=== PATIENT | male | born 1975 | race Caucasian/White ===

== ENCOUNTER 2016-08-28 05:52 | Observation (INO) ==
--- NOTE | 2016-08-28 06:05 | Emergency Department Note ---
Disposition Clinical Impression: Epigastric pain Disposition: Still a Patient Condition: Undetermined Referrals: Alex Brown PAC [Primary Care Provider] - Forms: ED Satisfaction Letter Time of Disposition: 06:58 Chest Pain HPI - General Chief Complaint: ED Chest Pain Stated Complaint: midsternal chest pain/epigastric pain Time Seen by Provider: 08/28/16 05:57 Source: patient Mode of arrival: ambulatory Limitations: no limitations Vital Signs Reviewed: Yes Nursing Notes Reviewed: Yes - History of Present Illness HPI Narrative: 40-year-old male with no previous medical history but he states he does not see a physician, arrives to the emergency department complaining of left-sided chest pain radiating to his left shoulder and epigastric region that began at 0200 and having bilateral hand tingling. The patient does have associated dyspnea. He denies any other complaints at this time. The patient's father had an OR at age 3939 years old. The patient denies any previous cardiac catheter or testing other than an EKG for previous chest pain episode years ago. Patient denies any other complaints including fever, chills, nausea, vomiting, weakness, unilateral leg swelling, recent surgeries, history of PE or DVT. The patient does state that he is experiencing epigastric pain. Pt complaint: chest pain Onset (ago): Just [employer] Duration: constant Onset: during rest Pain Location: left chest Severity: moderate Severity scale (1-10): 9 Quality: tightness Pain Radiation: LUE Improves with: nothing Worsens with: nothing Treatments prior to arrival chest pain: none - Related Data On Oral Contraceptives: No Allergies Allergy/AdvReac Type Severity Reaction Status Date / Time No Known Allergies Allergy Verified 08/28/16 05:55 Review of Systems: Review of Systems Constitutional: Denies fevers, chills HEENT: Denies headache Respiratory: Denies cough, sputum change, hemoptysis, admits to dyspnea Cardiac: Admits to chest pain, pressure, denies palpitations, dyspnea on exertion, pedal edema Gastrointestinal: Denies abdominal pain, changes in bowel habits, vomiting, nausea Genitourinary: Denies dysuria, hematuria, nocturia, change in frequency, urgency, incontinence Neurologic: Denies headaches, dizziness, syncope, focalized weakness, paraesthesias, weakness Musculoskeletal: Denies back pain, joint pain, myalgias All systems ED: reviewed and negative except as stated. Chest Pain PMH - Past Medical History Medical history: Reports: other Surgical history: Reports: other (Tonsillectomy) Psychiatric history: Reports: no psych history - Social History Smoking Status: Current every day smoker Alcohol use: Reports: none Drug use: Reports: IVDU, other Physical Exam Physical Exam: General: Patient alert, mildly diaphoretic upon arrival to the emergency department HEENT: Head normal inspection, atraumatic, PERRLA, oropharynx grossly intact and normal, trachea midline, no JVD Chest: Nontraumatic, nontender, normal chest rise CV: RRR with no murmurs, rubs, gallops Respiratory: Lungs clear to auscultation bilaterally, no rales, rhonchi, wheezes. Abdomen: Normal inspection, Normal bowel sounds 4 quadrants, RUQ pain, bellamy sign positive. No rebound, no guarding, no rigidity. : Patient deferred Extremities: Normal inspection, full range of motion, appropriate pulses, capillary refill under 2 seconds Neurological: Patient alert and oriented 3, cranial nerves II through XII grossly intact, GCS 15 Skin: Warm, intact, no rashes noted - General Limitations: no limitations General appearance: alert Course Vital Signs Temperature 98.2 F 08/28/16 05:55 Pulse Rate 63 08/28/16 05:55 Respiratory Rate 20 08/28/16 05:55 Blood Pressure 168/92 08/28/16 05:55 O2 Sat by Pulse Oximetry 100 08/28/16 05:55 Temperature 98.2 F 08/28/16 05:55 Pulse Rate 59 08/28/16 06:37 Respiratory Rate 18 08/28/16 06:37 Blood Pressure 121/83 08/28/16 06:37 O2 Sat by Pulse Oximetry 99 08/28/16 06:37 Oxygen Delivery Oxygen Delivery Room Air Chest Pain - MDM Narrative Medical decision making narrative: After utilizing a bedside ultrasound that it does appear as though the patient does have gallstones. The patient has sonographic Bellamy sign. We will obtain a right upper quadrant ultrasound. We are signing out the patient to the day team. They will resume care at this time. - Lab Data Lab results reviewed: Yes I reviewed the patient's lab results. Result diagrams: 08/28/16 06:00 08/28/16 06:00 Lab Results 08/28/16 08/28/16 08/28/16 Range/Units 06:00 06:00 06:00 WBC 11.8 H (4.3-11.1) K/mcL RBC 5.39 (4.19-5.50) M/mcL Hgb 15.7 (12.9-16.9) g/dL Hct 46.7 (37.5-50.1) % MCV 86.6 (83.0-100.0) fL MCH 29.1 (28.0-33.3) pg MCHC 33.6 (31.6-35.5) g/dL RDW 12.5 (11.5-14.5) % Plt Count 260 (140-400) K/mcL MPV 10.8 (9.4-12.4) fL Immature Gran % 0.4 (0-4) % Seg Neutrophils % 54.5 % Lymphocytes % 33.1 % Monocytes % 7.3 % Eosinophils % 4.1 % Basophils % 0.6 % Neutrophils # 6.4 (1.6-8.9) K/mcL Lymphocytes # 3.9 (0.6-4.6) K/mcL Monocytes # 0.9 (0.0-1.3) K/mcL Eosinophils # 0.5 (0.0-0.6) K/mcL Basophils # 0.1 (0.0-0.2) K/mcL Sodium 139 (136-145) mEq/L Potassium 4.6 H (3.5-4.5) mEq/L Chloride 106 (98-109) mEq/L Carbon Dioxide 22 (19-29) mEq/L BUN 10 (8-26) mg/dL Creatinine 0.84 (0.72-1.25) mg/dL Est GFR ( Amer) > 60 (> 60) Est GFR (Non-Af Amer) > 60 (> 60) BUN/Creatinine Ratio 12 (6-26) Glucose 122 H (70-99) mg/dL Calculated Osmolality 288 (280-300) Calcium 9.6 (8.6-10.8) mg/dL Troponin I 0.00 (0-0.03) ng/mL Lipase 26 (8-78) Units/L - EKG Data EKG attestation: Yes I reviewed and interpreted this EKG. EKG results narrative: Heart rate 58 bpm. FL interval 140 ms. QTc 45 ms. Normal axis. Sinus bradycardia. No ST elevation or ST depression noted. Nonspecific ST changes noted from EKG from 11/20/2005. EKG #2: Heart rate 56 bpm. FL interval 149 ms. QTc 417 ms. Normal axis. Sinus bradycardia. No ST elevation or ST depression noted. Similar to previous EKG Attestation Statement - Attestation Attestation: Dr. España note: Pt was seen in conjunction with resident Dr. Covarrubias, please see his charting for complete documentation. Assessment [id number] time with the patient and agree with the patient's treatment and disposition; Pain since 2 a.m , and Troponin/lipase negative @ this time; ultrasound of GBladder pending; signed out to Dr Phipps @ 7 a.m; ekg non acute, unchanged on repeat
[2016-08-28] MEDS ORDERED: Nitroglycerin 0.4 MG TAB.SUBL SL ONE (06:09)
[2016-08-28 06:11] LABS: Basophils # 0.1 K/mcL (0.0-0.2); Basophils % 0.6 %; Eosinophils # 0.5 K/mcL (0.0-0.6); Eosinophils % 4.1 %; Hematocrit 46.7 % (37.5-50.1); Hemoglobin 15.7 g/dL (12.9-16.9); Immature Granulocytes % 0.4 % (0-4); Lymphocytes # 3.9 K/mcL (0.6-4.6); Lymphocytes % 33.1 %; Mean Corpuscular HGB Conc 33.6 g/dL (31.6-35.5); Mean Corpuscular Hemoglobin 29.1 pg (28.0-33.3); Mean Corpuscular Volume 86.6 fL (83.0-100.0); Mean Platelet Volume 10.8 fL (9.4-12.4); Monocytes # 0.9 K/mcL (0.0-1.3); Monocytes % 7.3 %; Neutrophils # 6.4 K/mcL (1.6-8.9); Platelet Count 260 K/mcL (140-400); Red Blood Count 5.39 M/mcL (4.19-5.50); Red Cell Distribution Width 12.5 % (11.5-14.5); Segmented Neutrophils % 54.5 %
[2016-08-28] MEDS: Nitroglycerin 0.4 MG TAB.SUBL SL PRN ×2 (06:17→06:23)
[2016-08-28 06:24] LABS: BUN/Creatinine Ratio 12 (6-26); Blood Urea Nitrogen 10 mg/dL (8-26); Calcium 9.6 mg/dL (8.6-10.8); Carbon Dioxide 22 mEq/L (19-29); Chloride 106 mEq/L (98-109); Glucose 122 mg/dL (70-99); Osmolality,Calculated 288 (280-300); Potassium 4.6 mEq/L (3.5-4.5); Sodium 139 mEq/L (136-145); eGFR For African Americans > 60 (> 60); eGFR For Non-African Americans > 60 (> 60)
[2016-08-28] MEDS ORDERED: *HR* Morphine 2 MG/ML SYRINGE IVP ONE ×2 (06:28→08:18)
[2016-08-28] MEDS ORDERED: *HR* HYDROmorphone (PF) 1 MG/ML SYRINGE IVP ONE ×2 (06:43→07:10)
[2016-08-28] MEDS ORDERED: Nitroglycerin 25 MG/250 ML INFUS..BTL IVC SCH (06:45)
[2016-08-28 06:48] LABS: Lipase 26 Units/L (8-78)
[2016-08-28] MEDS ORDERED: Ondansetron 4 MG/2 ML VIAL IV ONE (06:48)
--- NOTE | 2016-08-28 07:09 | Emergency Department Note ---
Disposition Clinical Impression: Epigastric pain, RUQ pain, Left sided chest pain Disposition: Admitted As Inpatient Condition: Fair Time of Disposition: 10:57 Chest Pain HPI - General Chief Complaint: ED Chest Pain Stated Complaint: midsternal chest pain/epigastric pain Time Seen by Provider: 08/28/16 05:57 Source: patient Mode of arrival: ambulatory Limitations: no limitations Vital Signs Reviewed: Yes Nursing Notes Reviewed: Yes - History of Present Illness Pain Location: left chest Severity scale (1-10): 9 Quality: tightness Improves with: nothing Worsens with: nothing - Related Data On Oral Contraceptives: No Allergies Allergy/AdvReac Type Severity Reaction Status Date / Time No Known Allergies Allergy Verified 08/28/16 05:55 Chest Pain PMH - Past Medical History Medical history: Reports: other Surgical history: Reports: other (Tonsillectomy) Psychiatric history: Reports: no psych history - Social History Smoking Status: Current every day smoker Alcohol use: Reports: none Drug use: Reports: IVDU, other Physical Exam - General Limitations: no limitations General appearance: alert, other (sweating, appears uncomfortable) - Head Head exam: atraumatic, normocephalic, normal inspection - Eye Eye exam: Present: normal appearance, PERRL, EOMI - ENT ENT exam: normal exam, normal oropharynx, mucous membranes moist - Neck Neck exam: Present: normal inspection, full ROM, trachea midline - Chest Chest inspection: Present: normal inspection, symmetric chest wall rise - Respiratory Respiratory exam: Present: normal lung sounds bilaterally - Cardiovascular Cardiovascular exam: Present: regular rate, normal rhythm, normal heart sounds - Abdominal Exam Abdominal exam: Present: soft, tenderness (Tenderness in the right upper quadrant, epigastric region). Absent: guarding, rebound, rigidity - Extremities Exam Extremities exam: Present: normal inspection, full ROM. Absent: tenderness, pedal edema - Neurological Exam Neurological exam: Present: alert, oriented X3 - Psychiatric Psychiatric exam: Present: normal affect, normal mood - Skin Skin exam: Present: warm, dry, intact, normal color Course Course Narrative: Patient was a sign out from Dr. Covarrubias and Dr. España. Please see their notes for further details. Most of workup completed. Patient is a 40-year-old male with no previous past medical history who presented today with epigastric pain that radiated into his left chest and left shoulder that began around 2 AM. He also had some mild shortness of breath and sweating. Had an [place] at 40 years old. He has never had a previous heart attack, stenting, heart catheter or stress test. He denies any fevers, nausea, vomiting, diarrhea, bowel or bladder symptoms. Denies any leg swelling. After physical exam, patient began having right upper quadrant pain as well. A bedside ultrasound performed by the previous resident was positive for gallstones. They have ordered an official right upper quadrant ultrasound for further assessment. Regardless, patient is still having epigastric, left sided chest, right upper quadrant pain after morphine 4mg and 1mg dilaudid. Patient is sweating on exam, has RUW, epigastric pain with palpation; no reproducible chest pain on exam. Will likely admit for chest pain after workup complete. Mild elevation in WBC. BMP WNL. Trop negative. CXR negative. EKG NSR with no acute ST changes. Will give another 1mg of dilaudid and a GI cocktail. 10:54 patient has required multiple doses of morphine, Dilaudid, fentanyl. Ultrasound of gallbladder showed cholelithiasis with no signs of cholecystitis. CTA was obtained of the chest that was negative, CT of abdomen and pelvis obtained as well which was negative for any acute processes. Again, signs of cholelithiasis but no cholecystitis. I spoke with Dr. Montejo with surgery who agreed to be consult due to right upper quadrant pain. Recommended HIDA scan for further assessment. Hospitalist has been contacted and accepted the patient for admission due to intractable pain and right upper quadrant, epigastric region, left chest. Patient had no improvement with nitroglycerin. Dr Ruggiero did not want to start a nitroglycerin drip at this time. Vital Signs Temperature 98.2 F 08/28/16 05:55 Pulse Rate 63 08/28/16 05:55 Respiratory Rate 20 08/28/16 05:55 Blood Pressure 168/92 08/28/16 05:55 O2 Sat by Pulse Oximetry 100 08/28/16 05:55 Temperature 97.9 F 08/28/16 14:51 Pulse Rate 52 08/28/16 14:51 Respiratory Rate 18 08/28/16 14:51 Blood Pressure 130/82 08/28/16 17:17 O2 Sat by Pulse Oximetry 99 08/28/16 14:51 Oxygen Delivery Oxygen Delivery Room Air Chest Pain - MDM Narrative Medical decision making narrative: Patient was a sign out from Dr. Covarrubias and Dr. España. Please see their notes for further details. Most of workup completed. Patient is a 40-year-old male with no previous past medical history who presented today with epigastric pain that radiated into his left chest and left shoulder that began around 2 AM. He also had some mild shortness of breath and sweating. Had an [place] at 40 years old. He has never had a previous heart attack, stenting, heart catheter or stress test. He denies any fevers, nausea, vomiting, diarrhea, bowel or bladder symptoms. Denies any leg swelling. After physical exam, patient began having right upper quadrant pain as well. A bedside ultrasound performed by the previous resident was positive for gallstones. They have ordered an official right upper quadrant ultrasound for further assessment. Regardless, patient is still having epigastric, left sided chest, right upper quadrant pain after morphine 4mg and 1mg dilaudid. Patient is sweating on exam, has RUW, epigastric pain with palpation; no reproducible chest pain on exam. Will likely admit for chest pain after workup complete. Mild elevation in WBC. BMP WNL. Trop negative. CXR negative. EKG NSR with no acute ST changes. Will give another 1mg of dilaudid and a GI cocktail. 10:54 patient has required multiple doses of morphine, Dilaudid, fentanyl. Ultrasound of gallbladder showed cholelithiasis with no signs of cholecystitis. CTA was obtained of the chest that was negative, CT of abdomen and pelvis obtained as well which was negative for any acute processes. Again, signs of cholelithiasis but no cholecystitis. I spoke with Dr. Montejo with surgery who agreed to be consult due to right upper quadrant pain. Recommended HIDA scan for further assessment. Hospitalist has been contacted and accepted the patient for admission due to intractable pain and right upper quadrant, epigastric region, left chest. Patient had no improvement with nitroglycerin. Dr Ruggiero did not want to start a nitroglycerin drip at this time. - Lab Data Lab results reviewed: Yes I reviewed the patient's lab results. Result diagrams: 08/28/16 06:00 08/28/16 06:00 Lab Results 08/28/16 08/28/16 08/28/16 Range/Units 06:00 06:00 06:00 WBC 11.8 H (4.3-11.1) K/mcL RBC 5.39 (4.19-5.50) M/mcL Hgb 15.7 (12.9-16.9) g/dL Hct 46.7 (37.5-50.1) % MCV 86.6 (83.0-100.0) fL MCH 29.1 (28.0-33.3) pg MCHC 33.6 (31.6-35.5) g/dL RDW 12.5 (11.5-14.5) % Plt Count 260 (140-400) K/mcL MPV 10.8 (9.4-12.4) fL Immature Gran % 0.4 (0-4) % Seg Neutrophils % 54.5 % Lymphocytes % 33.1 % Monocytes % 7.3 % Eosinophils % 4.1 % Basophils % 0.6 % Neutrophils # 6.4 (1.6-8.9) K/mcL Lymphocytes # 3.9 (0.6-4.6) K/mcL Monocytes # 0.9 (0.0-1.3) K/mcL Eosinophils # 0.5 (0.0-0.6) K/mcL Basophils # 0.1 (0.0-0.2) K/mcL Sodium 139 (136-145) mEq/L Potassium 4.6 H (3.5-4.5) mEq/L Chloride 106 (98-109) mEq/L Carbon Dioxide 22 (19-29) mEq/L BUN 10 (8-26) mg/dL Creatinine 0.84 (0.72-1.25) mg/dL Est GFR ( Amer) > 60 (> 60) Est GFR (Non-Af Amer) > 60 (> 60) BUN/Creatinine Ratio 12 (6-26) Glucose 122 H (70-99) mg/dL Calculated Osmolality 288 (280-300) Calcium 9.6 (8.6-10.8) mg/dL Total Bilirubin 0.2 (0.2-1.2) mg/dL Direct Bilirubin 0.1 (0.0-0.5) mg/dL Indirect Bilirubin 0.1 (0.0-1.2) mg/dL AST 19 (5-34) Units/L ALT 20 (0-55) Units/L Alkaline Phosphatase 90 (38-126) Units/L Troponin I 0.00 (0-0.03) ng/mL Serum Total Protein 7.9 (6.0-8.3) g/dL Albumin 4.0 (3.5-5.0) g/dL Globulin 3.9 H (2.4-3.5) g/dL Albumin/Globulin Ratio 1.0 L (1.1-2.2) Lipase 26 (8-78) Units/L /11/08 Range/Units 12:03 WBC (4.3-11.1) K/mcL RBC (4.19-5.50) M/mcL Hgb (12.9-16.9) g/dL Hct (37.5-50.1) % MCV (83.0-100.0) fL MCH (28.0-33.3) pg MCHC (31.6-35.5) g/dL RDW (11.5-14.5) % Plt Count (140-400) K/mcL MPV (9.4-12.4) fL Immature Gran % (0-4) % Seg Neutrophils % % Lymphocytes % % Monocytes % % Eosinophils % % Basophils % % Neutrophils # (1.6-8.9) K/mcL Lymphocytes # (0.6-4.6) K/mcL Monocytes # (0.0-1.3) K/mcL Eosinophils # (0.0-0.6) K/mcL Basophils # (0.0-0.2) K/mcL Sodium (136-145) mEq/L Potassium (3.5-4.5) mEq/L Chloride (98-109) mEq/L Carbon Dioxide (19-29) mEq/L BUN (8-26) mg/dL Creatinine (0.72-1.25) mg/dL Est GFR ( Amer) (> 60) Est GFR (Non-Af Amer) (> 60) BUN/Creatinine Ratio (6-26) Glucose (70-99) mg/dL Calculated Osmolality (280-300) Calcium (8.6-10.8) mg/dL Total Bilirubin (0.2-1.2) mg/dL Direct Bilirubin (0.0-0.5) mg/dL Indirect Bilirubin (0.0-1.2) mg/dL AST (5-34) Units/L ALT (0-55) Units/L Alkaline Phosphatase (38-126) Units/L Troponin I 0.00 (0-0.03) ng/mL Serum Total Protein (6.0-8.3) g/dL Albumin (3.5-5.0) g/dL Globulin (2.4-3.5) g/dL Albumin/Globulin Ratio (1.1-2.2) Lipase (8-78) Units/L - Radiology Data Radiology results reviewed: Yes I reviewed the patient's radiology results. Chest X-Ray 08/28/16 06:03 IMPRESSION: Negative portable chest. D/ / Paul Downs MD / Paul Downs MD Interpreting Provider: Paul Downs MD Gallbladder Ultrasound 08/28/16 06:48 IMPRESSION: Cholelithiasis, with a positive sonographic Bellamy sign. There is also a thin rim of decreased echogenicity around the gallbladder, most likely representing focal fatty sparing. If any concern for cholecystitis, further evaluation could be obtained with a nuclear medicine scan to assess for cystic duct obstruction. No significant gallbladder wall thickening is seen however. No choledocholithiasis suspected with a normal size common bile duct. Hepatic steatosis. D/ / Andre Schumacher MD / nAdre Schumacher MD Interpreting Provider: Andre Schumacher MD Abdomen/Pelvis CT 08/28/16 08:13 IMPRESSION: Cholelithiasis without definite CT evidence of cholecystitis. Areas of mosaic attenuation related to air trapping within the lung bases which can be seen with small airways disease. Frondlike areas of soft tissue in the region of the base of the penis which may be related to sequela of HPV. D/ / 08/28/2016 10:22:40 Andre Schumacher MD / Bindu Christie Interpreting Provider: Andre Schumacher MD Chest CTA 08/28/16 08:13 IMPRESSION: Cholelithiasis without definite CT evidence of cholecystitis. Areas of mosaic attenuation related to air trapping within the lung bases which can be seen with small airways disease. Frondlike areas of soft tissue in the region of the base of the penis which may be related to sequela of HPV. D/ / 08/28/2016 10:22:40 Andre Schumacher MD / Bindu Christie Interpreting Provider: Andre Schumacher MD - EKG Data EKG attestation: Yes I reviewed and interpreted this EKG. EKG results narrative: 08/28/2016 06:33. Sinus bradycardia. Rate 56. NM interval 149. QRS 98. QTC 417. Normal axis. Q waves present in 2, 3, aVF that are present on old EKG in 2005. Mild ST elevation in lead 2 that was present on previous EKG in 11/20/2005 Heart Score - Score History: Moderately Suspicious EKG: Normal Age: Less than 45 Risk Factors: No risk factors known Troponin: Less than normal limit HEART Score Total: 1 S.B.APatsy - [place] Situation: Demographics, MOA Background: Presenting Complaint, Relevant PMH, Meds, & Allergies Assessment: Vital Signs, Course and respsone to treatment, Exam Concerns, Patient/Family Expectation, Pertinant Lab Results, Outstanding Labs Recommendation: Barrier(s) to disposition, Recommendation based on pending studies, treatments, or consults SBonita Report Given to: Dr. Clary Ontiveros Repor Time: 10:57 Attestation Statement - Attestation Attestation: I examined this patient and my medical decision-making was reviewed with the UPHOLSTERY HANDLER/PA/Advanced Practice Nurse/Resident Physician. I agree with the documented findings, disposition and treatment plan as described except to the extent set forth below. Patient signed out by lieutenant shift supervisor pending workup. Patient reevaluated. Patient being confrontational. States were doing nothing to help him. States renal care about him. Patient has had cardiac workup. Ultrasound result pending. He has had 2 doses of Dilaudid and a dose of morphine. Patient is on a gallbladder ultrasound that shows stones. CT chest abdomen pelvis to rule out dissection as it is still writhing in pain. No dissection. Patient is still rolling around on the bed. Will try another dose of fentanyl. He has been discussed with surgery and will be admitted to medicine. Dr Esapña note: Patient was seen in conjunction with resident Dr Covarrubias; please see his charting for complete documentation. I spent [id number] time with the patient and I agree with the patient's treatment and disposition. The patient has had chest pain and diaphoresis intermittently since 2 AM while at rest. No prodromal symptoms last night. Very dramatic and demanding in the ER. Denies prior presentations for the same symptoms. Father had a history of heart disease at young age. EKG shows no acute injury pattern and was repeated. Blood work unremarkable for acute coronary injury
[2016-08-28] MEDS ORDERED: GI Cocktail 40 ML EACH PO ONE (07:10)
[2016-08-28] MEDS ORDERED: *HR* FentaNYL (PF) 100 MCG/2 ML VIAL IV ONE ×2 (08:35→10:40)
[2016-08-28] MEDS ORDERED: Ketorolac 30 MG/ML VIAL IV ONE (10:11)
[2016-08-28] MEDS ORDERED: Naloxone 0.4 MG/ML INJ IVP PRN (11:09)
[2016-08-28] MEDS ORDERED: Ondansetron 4 MG/2 ML VIAL IVP PRN (11:09)
--- NOTE | 2016-08-28 11:40 | Internal Med History&Physical ---
<Antonia Rodriguez M - Last Filed: 08/28/16 11:36> Date of Encounter: 08/28/16 Time of Encounter: 11:36 Assessment and Plan (1) Left sided chest pain Current visit: Yes Status: Acute Patient reports left sided chest pain radiating to left shoulder accompanied by shortness of breath and sweats. EKG shows sinus bradycardia. Initial troponin negative at 0.0. Pain unrelieved by nitro. Patient has risk factors of smoking and family history of early MT. Continuous residential monitor serial troponins echocardiogram and stress test in the morning. (2) RUQ pain Current visit: Yes Status: Acute Patient has positive Bellamy's sign, tenderness to palpation in RUQ. US and CT show cholelithiasis without evidence of cholecystitis. surgery consulted and recommended HIDA scan HIDA scan ordered- patient must be pain med free for 6 hours prior to test, they will plan for first thing tomorrow morning. Hold pain medications after midnight. PRN NORCO and Dilaudid for pain control. Narcan ordered PRN for respiratory depression. (3) Smoker Current visit: Yes Status: Acute Patient reports he smokes 1PPD. Discussed smoking cessation. He is not ready to quit. Nicotine patch ordered. (4) History of narcotic addiction Current visit: Yes Status: Acute Patient's reported he was addicted to narcotics in the past and went through suboxone treatment. She reports he has been clean for 5 years. He does seem to have a high tolerance for pain medication and this should be taken into consideration. (5) DVT prophylaxis Current visit: Yes Status: Acute Encourage ambulation anti-embolic stockings Lovenox 40mg SQ daily Internal Medicine - H&P: HPI Chief complaint: chest pain, epigastric pain Admitted From: Emergency Dept Plans for Post Hospital Care: Home History of present illness: Mr. Torre is a 40 year old male who smokes and has a reported history of hiatal hernia who presented to the ED early this morning with complaints of chest pain and epigastric pain. He reports the pain started suddenly at 2am and was in his mid chest, radiating to his left shoulder and epigastric area. The pain was accompanied by sweats and shortness of breath. The pain progressively got worse and he decided to go to the ED. He denies any recent fevers, chills, nausea, vomiting or diarrhea. He has cardiac risk factors of smoking and strong family history of cardiac disease, with his father having an MT at age 39 and his paternal uncle dying at age 46 of an MT. He had exensive work up in the ED which included EKG showing sinus bradycardia with no ST elevations or depressions, CXR showed no acute issues. Troponin was negative at 0.0. Lipase was normal at 26. WBC was mildly elevated to 11.8. Patient had RUQ tenderness on exam and a RUQ US was ordered which showed cholelithiasis without cholecystitis. CTA was obtained and was negative for PE or aortic dissection. CT of the Abd/pelvis also confirmed cholelithiasis. Surgery was consulted and recommended a HIDA scan. Patient's pain was not well controlled and he required multiple doses of morphine, dilaudid and fentanyl to control his pain. He has a history of narcotic addiction (none in the last 5 years) which may explain the increased requirements. On exam, the patient was resting, and appeared comfortable. Lungs were clear bilaterally to auscultation and heart had regular, bradycardic rhythm. Patient had significant tenderness to RUQ on palpation. Past Med Surg Social Fam HX - Past Medical History Medical history: arthritis, other (hiatal hernia) Psychiatric history: no psych history - Past Surgical History Surgical History: other (Tonsillectomy) - Social History Smoking Status: Current every day smoker (26 pack year history) Smokeless Tobacco Status: No Alcohol use: none Drug use: IVDU (Clean for 5 years per ), other - Family History Father Living Status: Still Living Hx Family Cardiac Disorders: Yes Internal Medicine - H&P: Meds Allergies No Known Allergies Allergy (Verified 08/28/16 05:55) All Systems PM: A 10-system review of systems was performed and is negative for pertinent findings except as documented above in the HPI. - Constitutional Constitutional: night sweats, no chills, no fever(s) - EENT Eyes: no change in vision, no discharge, no pain, no photophobia Ears: no ear discharge, no ear pain, no tinnitus Nose, mouth and throat: no dysphagia, no nasal discharge, no neck pain, no sore throat - Cardiovascular Cardiovascular ROS IM: chest pain, diaphoresis, dyspnea, no lightheadedness, no palpitations, no syncope - Respiratory Respiratory: dyspnea, no cough, no wheezing, no excessive phlegm production - Gastrointestinal Gastrointestinal: abdominal pain, no diarrhea, no hematemesis, no hematochezia, no melena, no nausea, no vomiting - Musculoskeletal Musculoskeletal ROS IM: no numbness, no tingling - Integumentary Integumentary IM: no rash, no unusual bruising - Neurological Neurological ROS: no confusion, no convulsions, no focal weakness, no numbness, no tingling, no tremor(s) - Hematologic/Lymphatic Hematologic/Lymphatic: no easy bruising - Constitutional Vitals: Temp Pulse Resp BP Pulse Ox 98.2 F 54 16 176/88 99 08/28/16 05:55 08/28/16 10:17 08/28/16 10:17 08/28/16 10:17 08/28/16 10:17 General appearance: Present: mild distress, A&O X 3, pleasant - Head Head exam: Present: atraumatic, normocephalic - Eye Eye exam: Present: PERRL, conjuntiva pink, sclera anicteric Pupils: Present: PERRL - Neck Neck exam general surgery: Present: supple, trachea midline. Absent: lymphadenopathy - Respiratory Respiratory exam: Present: CTAB. Absent: accessory muscle use, rales, rhonchi, wheezes - Cardiovascular Cardiovascular exam: Present: bradycardia, +S1, +S2. Absent: diastolic murmur, gallop, rubs, systolic murmur - GI/Abdominal GI/Abdominal exam: Present: guarding, normal bowel sounds, soft, tenderness. Absent: distended - Expanded GI/Abdominal Exam GI/Abdominal exam expanded: Present: Bellamy's sign - Extremities Exam Extremities exam: Present: warm, radial pulses palpable and symetrical. Absent : calf tenderness, cyanotic, pedal edema - Neurological Exam Neurological exam: Present: CN II-XII intact, oriented X3, no focal deficits. Absent: facial droop, speech deficit - Skin Skin exam: Present: dry, intact Internal Med - H&P Results - Labs CBC & Chem 7: 08/28/16 06:00 08/28/16 06:00 Labs: All Lab Results (24 Hours) 08/28/16 08/28/16 08/28/16 Range/Units 06:00 06:00 06:00 WBC 11.8 H (4.3-11.1) K/mcL RBC 5.39 (4.19-5.50) M/mcL Hgb 15.7 (12.9-16.9) g/dL Hct 46.7 (37.5-50.1) % MCV 86.6 (83.0-100.0) fL MCH 29.1 (28.0-33.3) pg MCHC 33.6 (31.6-35.5) g/dL RDW 12.5 (11.5-14.5) % Plt Count 260 (140-400) K/mcL MPV 10.8 (9.4-12.4) fL Immature Gran % 0.4 (0-4) % Seg Neutrophils % 54.5 % Lymphocytes % 33.1 % Monocytes % 7.3 % Eosinophils % 4.1 % Basophils % 0.6 % Neutrophils # 6.4 (1.6-8.9) K/mcL Lymphocytes # 3.9 (0.6-4.6) K/mcL Monocytes # 0.9 (0.0-1.3) K/mcL Eosinophils # 0.5 (0.0-0.6) K/mcL Basophils # 0.1 (0.0-0.2) K/mcL Sodium 139 (136-145) mEq/L Potassium 4.6 H (3.5-4.5) mEq/L Chloride 106 (98-109) mEq/L Carbon Dioxide 22 (19-29) mEq/L BUN 10 (8-26) mg/dL Creatinine 0.84 (0.72-1.25) mg/dL Est GFR ( Amer) > 60 (> 60) Est GFR (Non-Af Amer) > 60 (> 60) BUN/Creatinine Ratio 12 (6-26) Glucose 122 H (70-99) mg/dL Calculated Osmolality 288 (280-300) Calcium 9.6 (8.6-10.8) mg/dL Troponin I 0.00 (0-0.03) ng/mL Lipase 26 (8-78) Units/L - Impressions ITS Impressions Chest X-Ray 08/28/16 06:03 IMPRESSION: Negative portable chest. D/ / Paul Downs MD / Paul Downs MD Interpreting Provider: Paul Downs MD Gallbladder Ultrasound 08/28/16 06:48 IMPRESSION: Cholelithiasis, with a positive sonographic Bellamy sign. There is also a thin rim of decreased echogenicity around the gallbladder, most likely representing focal fatty sparing. If any concern for cholecystitis, further evaluation could be obtained with a nuclear medicine scan to assess for cystic duct obstruction. No significant gallbladder wall thickening is seen however. No choledocholithiasis suspected with a normal size common bile duct. Hepatic steatosis. D/ / Andre Schumacher MD / Andre Schumacher MD Interpreting Provider: Andre Schumacher MD Abdomen/Pelvis CT 08/28/16 08:13 IMPRESSION: Cholelithiasis without definite CT evidence of cholecystitis. Areas of mosaic attenuation related to air trapping within the lung bases which can be seen with small airways disease. Frondlike areas of soft tissue in the region of the base of the penis which may be related to sequela of HPV. D/ : / 08/28/2016 10:22:40 Andre Schumacher MD / Bindu Christie Interpreting Provider: Andre Schumacher MD Chest CTA 08/28/16 08:13 IMPRESSION: Cholelithiasis without definite CT evidence of cholecystitis. Areas of mosaic attenuation related to air trapping within the lung bases which can be seen with small airways disease. Frondlike areas of soft tissue in the region of the base of the penis which may be related to sequela of HPV. D/ / 08/28/2016 10:22:40 Andre Schumacher MD / Bindu Christie Interpreting Provider: Andre Schumacher MD - Diagnostic Studies Chest x-ray Additional comments: Chest X-Ray 08/28/16 06:03 IMPRESSION: Negative portable chest. D/ / Paul Downs MD / Paul Downs MD Interpreting Provider: Paul Downs MD US - abdomen Additional comments: Gallbladder Ultrasound 08/28/16 06:48 IMPRESSION: Cholelithiasis, with a positive sonographic Bellamy sign. There is also a thin rim of decreased echogenicity around the gallbladder, most likely representing focal fatty sparing. If any concern for cholecystitis, further evaluation could be obtained with a nuclear medicine scan to assess for cystic duct obstruction. No significant gallbladder wall thickening is seen however. No choledocholithiasis suspected with a normal size common bile duct. Hepatic steatosis. D/ / Andre Schumacher MD / Andre Schumacher MD Interpreting Provider: Andre Schumacher MD CT scan - abdomen Additional comments: Abdomen/Pelvis CT 08/28/16 08:13 IMPRESSION: Cholelithiasis without definite CT evidence of cholecystitis. Areas of mosaic attenuation related to air trapping within the lung bases which can be seen with small airways disease. Frondlike areas of soft tissue in the region of the base of the penis which may be related to sequela of HPV. D/ / 08/28/2016 10:22:40 Andre Schumacher MD / Bindu Christie Interpreting Provider: Andre Schumacher MD CT scan - chest Additional comments: Chest CTA 08/28/16 08:13 IMPRESSION: Cholelithiasis without definite CT evidence of cholecystitis. Areas of mosaic attenuation related to air trapping within the lung bases which can be seen with small airways disease. Frondlike areas of soft tissue in the region of the base of the penis which may be related to sequela of HPV. D/ / 08/28/2016 10:22:40 Andre Schumacher MD / Bindu Christie Interpreting Provider: Andre Schumacher MD <David Means T - Last Filed: 08/28/16 14:18> Date of Encounter: 08/28/16 Internal Medicine - H&P: HPI History of present illness: Mr. Torre is a 40 year old male All Systems PM: A 10-system review of systems was performed and is negative for pertinent findings except as documented above in the HPI. - Constitutional Vitals: Temp Pulse Resp BP Pulse Ox 97.8 F 52 20 185/85 100 08/28/16 13:08 08/28/16 13:08 08/28/16 13:08 08/28/16 13:08 08/28/16 13:08 Internal Med - H&P Results - Labs CBC & Chem 7: 08/28/16 06:00 08/28/16 06:00 - Attending Attestation I have independently interviewed and examined this patient. I agree with the resident/nurse practitioner with extensions as stated below. The plan of care has been discussed with the patient. 41 Y/O M with PMH of Opiate dependence, now weaned off, also hx of HTN, presented to ER complaining of L sided chest pain radiating to his arms and then epigastric pain. He states his RUQ pain started after his abdomen was examined; he has required multiple high doses of pain medications in the ER. He is seen at bedside with his . VSS except elevated BP, he refused abdomen exam states too many people have touched chest is clear, no pedal edema Labs and Imaging reviewed: leukocytosis with shift, chem unremarkable, troponin negative X2 LFTs pending. CTA no acute event, Abd USS with hepatic steatosis and cholelithiasis, no current evidence of cholecystitis, murphys sign positive sonographically. EKG non-ischemic Assessment/Plan: Acute RUQ pain possibly biliary colic, rule out hepatitis , hx of hepatic steatosis, check lipid panel, IVF hydration , Obtain HIDA scan , consult GI. Chest pain not cardiac, possibly referred pain from RUQ pain, follows ECHO. Uncontrolled HTN worsened by pain, start on po Norvasc, Opiate tolerance, continue current pain meds. Rest of details as in [facility] documentation...
[2016-08-28] MEDS: *HR* HYDROmorphone (PF) 1 MG/ML SYRINGE IVP PRN ×2 (11:58→21:06)
[2016-08-28] MEDS ORDERED: Nicotine 21 MG PATCH.TD24 TD SCH (12:00)
--- NOTE | 2016-08-28 13:37 | Electrocardiograph Report ---
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
[2016-08-28] MEDS: *HR* HYDROcodone/Acet 5/325 mg TABLET PO PRN ×2 (13:41→19:58)
[2016-08-28] MEDS ORDERED: 0.9 % Sodium Chloride 1,000 ML ONE (13:51)
[2016-08-28] MEDS: 0.9 % Sodium Chloride 1,000 ML IVC SCH ×2 (14:01→23:06)
[2016-08-28] MEDS ORDERED: Ketorolac 60 MG/2 ML VIAL IM ONE (14:16)
[2016-08-28 14:27] LABS: Alanine Aminotransferase 20 Units/L (0-55); Alkaline Phosphatase 90 Units/L (38-126); Aspartate Amino Transferase 19 Units/L (5-34); Bilirubin,Direct 0.1 mg/dL (0.0-0.5); Bilirubin,Indirect 0.1 mg/dL (0.0-1.2); Bilirubin,Total 0.2 mg/dL (0.2-1.2); Globulin 3.9 g/dL (2.4-3.5); Total Protein 7.9 g/dL (6.0-8.3)
[2016-08-28] MEDS ORDERED: Ketorolac 30 MG/ML VIAL IM ONE (14:45)
[2016-08-28] MEDS: amLODIPine 5 MG TABLET PO SCH (14:49)
--- NOTE | 2016-08-28 16:02 | Electrocardiograph Report ---
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
[2016-08-28] MEDS ORDERED: Pantoprazole 40 MG VIAL IVP ONE (21:05)
--- NOTE | 2016-08-28 22:44 | Anesthesia Evaluation PreOp ---
<Jenni Herrera - Last Filed: 08/28/16 22:42> Date of Encounter: 08/28/16 - Past History Planned Operation: Lap cholecystectomy Cardiac History: Other (chest pain on admission unrelieved by nitro; trop 0.00 x 3; per IM note patient will received stress test and echo in the AM of 2016 ) Pulmonary History: Smoker Other Medical History: Other (hx narcotic addiction) Alcohol Use: none Drug use: IVDU, other Medications and Allergies Docusate [Colace] 100 mg PO BID #30 capsule 08/29/16 [Rx] OxyCODONE/APAP 10/325 [Percocet 10/325 MG] 1 each PO Q6HR PRN #30 tablet [Rx] Allergies No Known Allergies Allergy (Verified 08/28/16 05:55) - Meds/Allergy Pre-op Review Medications Reviewed: Yes Allergies Reviewed: Yes Beta Blockers on Current Med List: No Anesthesia Results - Labs 08/28/16 06:00 08/28/16 06:00 - Imaging EKG: report reviewed, image reviewed (SB) Additional studies: Patient is supposed to have stress test and TTE on 08-29-2016 per Internal Medicine H&P unless that plan has changed; patient does have family history of pre-mature CAD Anesthesia Exam Last Vital Signs Temp 97.6 F 08/28/16 18:00 Pulse 115 08/28/16 18:00 Resp 17 08/28/16 18:00 BP 149/79 08/28/16 18:00 Pulse Ox 96 08/28/16 18:00 Anesthesia Assess/Plan ASA Score: 2 Anesthetic Plan: General Monitoring Plan: Standard Monitors Recovery Plan: PACU <Juan Carlos Apple - Last Filed: 08/29/16 17:44> Date of Encounter: 08/29/16 Time of Encounter: 15:00 - Past History Cardiac History: Other Pulmonary History: Smoker 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: Denies Any Significant HX Other Medical History: Denies Any Significant HX Alcohol Use: none Drug use: IVDU, other - Meds/Allergy Pre-op Review Medications Reviewed: Yes Allergies Reviewed: Yes Beta Blockers on Current Med List: No Anesthesia Results - Labs 08/29/16 05:04 08/29/16 05:04 - Imaging EKG: report reviewed Anesthesia Exam O2 Sat O2 Sat by Pulse Oximetry 93 O2 Sat by Pulse Oximetry 94 O2 Sat by Pulse Oximetry 92 O2 Sat by Pulse Oximetry 98 O2 Sat by Pulse Oximetry 100 O2 Sat by Pulse Oximetry 96 O2 Sat by Pulse Oximetry 97 O2 Sat by Pulse Oximetry 98 O2 Sat by Pulse Oximetry 96 Vital Signs Temp Pulse Resp BP Pulse Ox 98.2 F 63 20 168/92 100 08/28/16 05:55 08/28/16 05:55 08/28/16 05:55 08/28/16 05:55 08/28/16 05:55 Height: 5'9 Weight: 190 lbs NPO (# of Hours): MN Pain Scale: 0 - HEENT Pupil (Motor): Pupils equal, EOMI Mallampati: II Teeth: Normal Oral Opening: Less than or equal to 3 - 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
[2016-08-29] MEDS: *HR* HYDROmorphone (PF) 1 MG/ML SYRINGE IVP PRN ×3 (02:42→14:03)
[2016-08-29] MEDS: *HR* HYDROcodone/Acet 5/325 mg TABLET PO PRN ×3 (04:57→17:48)
[2016-08-29 05:21] LABS: Hematocrit 43.7 % (37.5-50.1); Hemoglobin 14.4 g/dL (12.9-16.9); Immature Granulocytes % 0.5 % (0-4); Mean Corpuscular Hemoglobin 28.3 pg (28.0-33.3); Mean Platelet Volume 10.8 fL (9.4-12.4); Monocytes % 6.8 %; Platelet Count 226 K/mcL (140-400); Red Blood Count 5.08 M/mcL (4.19-5.50); Red Cell Distribution Width 12.6 % (11.5-14.5); Segmented Neutrophils % 67.4 %
[2016-08-29 05:22] LABS: Basophils % 0.3 %; Eosinophils # 0.3 K/mcL (0.0-0.6); Lymphocytes # 2.9 K/mcL (0.6-4.6); Monocytes # 0.9 K/mcL (0.0-1.3); Neutrophils # 8.5 K/mcL (1.6-8.9)
[2016-08-29 05:53] LABS: BUN/Creatinine Ratio 8 (6-26); Blood Urea Nitrogen 6 mg/dL (8-26); Carbon Dioxide 25 mEq/L (19-29); Chloride 106 mEq/L (98-109); Chol/HDL Ratio 5.2 (0-4.9); Cholesterol 150 mg/dL (< 200); Glucose 108 mg/dL (70-99); HDL Cholesterol 29 mg/dL (40-59); LDL Cholesterol,Calculated 107 mg/dL (0-99); Osmolality,Calculated 290 (280-300); Potassium 4.3 mEq/L (3.5-4.5); Sodium 141 mEq/L (136-145); Triglycerides 69 mg/dL (< 150); eGFR For African Americans > 60 (> 60); eGFR For Non-African Americans > 60 (> 60)
[2016-08-29] MEDS: amLODIPine 5 MG TABLET PO SCH (07:51)
[2016-08-29] MEDS: 0.9 % Sodium Chloride 1,000 ML IVC SCH (09:07)
--- NOTE | 2016-08-29 09:38 | ECHO - Doppler Report ---
Echocardiogram Name: Tera Torre Date of Study: 08/28/2016 Date: 1975 Ht: 69.0 in Medical Record#: [id number] Age: 40 Wt: 190.0 lb Gender: Male BSA: 2.02 Order #: [id number] Location: [facility] Room #: 3NE16 Reading Physician: Elina Martell DO Sampler And Test Preparer: Christina Berry RDCS Ordering Physician: Antonia Rodriguez CNP Primary Physician: HAIDER Ku Indications: Chest pain Impressions: LVEF 65-70%. Normal left ventricular size and systolic function. Normal right ventricular size and function. No significant valvular dysfunction. No pulmonary hypertension. Left Ventricular Wall Motion: Rest Echo Findings All wall segments showed normal motion. Findings: Study Quality * Technically adequate exam. ECG Findings * Normal sinus rhythm and sinus tachycardia. Left Ventricle * LVEF 65-70%. * Normal LV chamber size, wall thickness and function. * Indeterminate diastolic function. Fused mitral inflow. Right Ventricle * Normal right ventricular structure and function. Left Atrium * Normal left atrial size. Mitral Valve * Normal mitral valve structure. * No mitral stenosis. * No mitral regurgitation. Right Atrium * Normal right atrial size. Aortic Valve * Aortic valve not well visualized. * No aortic regurgitation. * No aortic stenosis. Tricuspid Valve * Tricuspid valve not well visualized. * Trace tricuspid regurgitation. Pulmonic Valve * Pulmonic valve is not well visualized. * No pulmonic stenosis. * No pulmonic regurgitation. Pulmonary Artery * Pulmonary artery not well visualized. Interatrial Septum * Interatrial septum not well evaluated. Pericardium * There is no pericardial effusion present. IVC * The IVC is not well evaluated. Aorta * Normally sized aortic root. History History of Smoking Years 26 Packs 1 Family History of CAD Measurements: BP: 184/ 92 2D Normal Values RVIDd: 3.20 cm <2.7 cm IVSd: .82 cm 0.6 - 1.0 cm LVIDd: 5.14 cm 3.7 - 5.6 cm LVPWd: .93 cm 0.6 - 1.1 cm LVIDs: 3.10 cm 1.5 - 3.6 cm AO: 2.70 cm < 4.0 cm LA: 3.60 cm 2.0 - 4.0cm %FS: 39.70 cm >25 % LA volume: 30 Mitral Valve Peak E:.69 m/sec Peak A:1.01 m/sec E/A Ratio:0.7 Peak E' Lat Hesham:18 cm/s Peak E' Med Hesham:9.79 cm/s E/E' Lat Ratio:3.9 E/E' Med Ratio:7.1 Updated by Elina Martell on 08/29/2016 9:32:54 AM electronically signed on 08/29/2016 9:33:26 AM with status of Final Wall Motion Van: 1=Normal, 2=Hypokinesis, 3=Akinesis, 4=Dyskinesis, 5=Aneurysmal, 6=Hyperkinetic, X=Not Visualized (Blank)=Missing
--- NOTE | 2016-08-29 12:10 | General Surgery Consult Note ---
Date of Encounter: 08/29/16 Time of Encounter: 11:00 Assessment and Plan (1) Symptomatic cholelithiasis Current Visit: Yes Status: Acute NPO for surgery IV fluids Supportive care/pain control Discussed the risks, benefits, alternatives and expected outcomes with the patient and he is in agreement to proceed with a laparoscopic cholecystectomy with cholangiogram with Dr. Montejo today- consent complete Pre-operative antibiotic (2) DVT prophylaxis Current Visit: Yes Status: Acute Will add EPCDs to bilateral lower extremities for DVT prophylaxis Ambulate hallways TID History of Present Illness Consult date: 08/29/16 Reason for consult: gallstones Requesting physician: Kevin Parks History of present illness: Mr. Torre is a 40 year old male who presented to the ED with complaints of sudden onset of epigastric abdominal pain. He states that the pain radiates into his RUQ and shoulders. Admits to chest pains as well. Admits to episode of diarhoresis with onset of the pain. Denies any associated nausea/vomiting. Denies any changes in bowel habits. He does admit to chronic constipation. Denies any melena or hematochezia. Denies any difficulty with urination. Admits to chronic heartburn which is uncontrolled. Denies any shortness of breath. He has had an US which shows evidence of cholelithiasis and a normal CBD. We have been asked to see and evaluate the patient for symptomatic cholelithiasis. Past Med Surg Social Fam HX - Past Medical History Source: patient Medical history: GERD, other (Hiatal hernia) Psychiatric history: no psych history - Past Surgical History Surgical History: other (Tonsillectomy) - Social History Smoking Status: Current every day smoker Packs per day: 1 Smokeless Tobacco Status: No Alcohol use: none Drug use: marijuana, IVDU (Denies use for the past 5 years), other Current living situation: Home - Independent Activity Level: Independent ambulation - Family History Father Living Status: Still Living Hx Family Cardiac Disorders: Yes Medications and Allergies No Known Home Drugs 08/28/16 [History] Allergies No Known Allergies Allergy (Verified 08/28/16 05:55) Review of Systems All systems PM: reviewed and no additional remarkable complaints except as stated (in the HPI) All systems PM: A 10-system review of systems was performed and is negative for pertinent findings except as documented above in the HPI. General Surgery Exam Initial Vital Signs Temp Pulse Resp BP Pulse Ox 98.2 F 63 20 168/92 100 08/28/16 05:55 08/28/16 05:55 08/28/16 05:55 08/28/16 05:55 08/28/16 05:55 - General physical appearance well developed, well nourished, no distress - Eyes PERRL, normal ocular movement - ENT normal mucosa, atraumatic, normocephalic - Neck trachea midline - Cardiovascular Cardiovascular exam: Present: RRR - Abdomen Abdomen general surgery: Present: bowel sounds present, soft, tender Abdominal Tenderness: Present: epigastic, RUQ - Integumentary Integumentary general surgery: Present: warm and dry - Neurologic Present: CN 2-12 grossly intact - Musculoskeletal Present: normal gait, normal posture - Psychiatric Psychiatric general surgery: Present: appropriate, oriented to person, oriented to place, oriented to time, speech is normal, memory intact Exam Initial Vital Signs Temp Pulse Resp BP Pulse Ox 98.2 F 63 20 168/92 100 08/28/16 05:55 08/28/16 05:55 08/28/16 05:55 08/28/16 05:55 08/28/16 05:55 Results - Labs 08/29/16 05:04 08/29/16 05:04 Abnormal lab results WBC 12.7 K/mcL (4.3-11.1) H 08/29/16 05:04 BUN 6 mg/dL (8-26) L 08/29/16 05:04 Glucose 108 mg/dL (70-99) H 08/29/16 05:04 Globulin 3.9 g/dL (2.4-3.5) H 08/28/16 06:00 Albumin/Globulin Ratio 1.0 (1.1-2.2) L 08/28/16 06:00 LDL Cholesterol, Calc 107 mg/dL (0-99) H 08/29/16 05:04 HDL Cholesterol 29 mg/dL (40-59) L 08/29/16 05:04 Cholesterol/HDL Ratio 5.2 (0-4.9) H 08/29/16 05:04 Diabetes panel 08/29/16 Range/Units 05:04 Sodium 141 (136-145) mEq/L Potassium 4.3 (3.5-4.5) mEq/L Chloride 106 (98-109) mEq/L Carbon Dioxide 25 (19-29) mEq/L BUN 6 L (8-26) mg/dL Creatinine 0.79 (0.72-1.25) mg/dL Glucose 108 H (70-99) mg/dL Calcium 9.0 (8.6-10.8) mg/dL Triglycerides 69 (< 150) mg/dL HDL Cholesterol 29 L (40-59) mg/dL Calcium panel 08/29/16 Range/Units 05:04 Calcium 9.0 (8.6-10.8) mg/dL Pituitary panel 08/29/16 Range/Units 05:04 Sodium 141 (136-145) mEq/L Potassium 4.3 (3.5-4.5) mEq/L Chloride 106 (98-109) mEq/L Carbon Dioxide 25 (19-29) mEq/L BUN 6 L (8-26) mg/dL Creatinine 0.79 (0.72-1.25) mg/dL Glucose 108 H (70-99) mg/dL Calcium 9.0 (8.6-10.8) mg/dL Adrenal panel 08/29/16 Range/Units 05:04 Sodium 141 (136-145) mEq/L Potassium 4.3 (3.5-4.5) mEq/L Chloride 106 (98-109) mEq/L Carbon Dioxide 25 (19-29) mEq/L BUN 6 L (8-26) mg/dL Creatinine 0.79 (0.72-1.25) mg/dL Glucose 108 H (70-99) mg/dL Calcium 9.0 (8.6-10.8) mg/dL All other labs normal. - Imaging CT scan - abdomen: report reviewed CT scan - pelvis: report reviewed US - abdomen: report reviewed Additional studies: Chest X-Ray 08/28/16 06:03 IMPRESSION: Negative portable chest. D/ / Paul Downs MD / Paul Downs MD Interpreting Provider: Paul Downs MD Gallbladder Ultrasound 08/28/16 06:48 IMPRESSION: Cholelithiasis, with a positive sonographic Bellamy sign. There is also a thin rim of decreased echogenicity around the gallbladder, most likely representing focal fatty sparing. If any concern for cholecystitis, further evaluation could be obtained with a nuclear medicine scan to assess for cystic duct obstruction. No significant gallbladder wall thickening is seen however. No choledocholithiasis suspected with a normal size common bile duct. Hepatic steatosis. D/ / Andre Schumacher MD / Andre Schumacher MD Interpreting Provider: Andre Schumacher MD Abdomen/Pelvis CT 08/28/16 08:13 IMPRESSION: Cholelithiasis without definite CT evidence of cholecystitis. Areas of mosaic attenuation related to air trapping within the lung bases which can be seen with small airways disease. Frondlike areas of soft tissue in the region of the base of the penis which may be related to sequela of HPV. D/ : / 08/28/2016 10:22:40 Andre Schumacher MD / Bindu Christie Interpreting Provider: Andre Schumacher MD Chest CTA 08/28/16 08:13 IMPRESSION: Cholelithiasis without definite CT evidence of cholecystitis. Areas of mosaic attenuation related to air trapping within the lung bases which can be seen with small airways disease. Frondlike areas of soft tissue in the region of the base of the penis which may be related to sequela of HPV. D/ / 08/28/2016 10:22:40 Andre Schumacher MD / Bindu Christie Interpreting Provider: Andre Schumacher MD Consult Discharge Plan - Plan Referrals: Alex Brown, PAC [Primary Care Provider] - - Attending Attestation I examined this patient and my medical decision-making was reviewed with the ALINING INSPECTOR/PA/Advanced Practice Nurse/Resident Physician. I agree with the documented findings, disposition and treatment plan as described except to the extent set forth below.
[2016-08-29] MEDS ORDERED: cefOXitin 2,000 MG in D5% in Water (Mini-Bag+) 100 ML IVPB ONE (12:17)
[2016-08-29] MEDS ORDERED: Nicotine 21 MG PATCH.TD24 TD SCH (14:00)
--- NOTE | 2016-08-29 15:12 | Internal Med Progress Note ---
Date of Encounter: 08/29/16 Time of Encounter: 13:45 - Assessment and plan (1) Symptomatic cholelithiasis Current Visit: Yes Status: Acute Assessment and plan: Scheduled for lapcholecystectomy today surgical evaluation appreciated will continue post op care as per surgery (2) Left sided chest pain Current Visit: Yes Status: Acute Assessment and plan: resolved at this time. 2D echo reports of LVEF of 65-70%, normal LV size and systolic function, normal RV size and function, no significant valvular dysfunction, no pulmonary hypertension. Serial TNI negative (3) Smoker Current Visit: Yes Status: Acute Assessment and plan: Smoking cessation counseling provided patient not ready to quit at this time nicotine supplementation provided (4) DVT prophylaxis Current Visit: Yes Status: Acute Assessment and plan: Heparin SQ - Subjective Interval history: Patient seen and examined with family present at bedside. Reports of having RUQ pain but denies any chest pain or sob at this time. Scheduled for lap cholecystectomy today. Reports of being an everyday smoker. No other discomfort reported at this time. - Constitutional Vitals: Temp Pulse Resp BP Pulse Ox 98.8 F 78 16 136/78 96 08/29/16 11:41 08/29/16 11:41 08/29/16 11:41 08/29/16 11:41 08/29/16 11:41 General appearance: Present: cooperative, A&O X 3, pleasant, no acute distress, answers questions appropriately - Head Head exam: Present: atraumatic, normocephalic - Eye Eye exam: Present: normal appearance, conjuntiva pink, sclera anicteric - Respiratory Respiratory exam: Present: CTAB. Absent: accessory muscle use, rales, rhonchi, wheezes - Cardiovascular Cardiovascular exam: Present: RRR, +S1, +S2. Absent: diastolic murmur, gallop, rubs, systolic murmur - GI/Abdominal GI/Abdominal exam: Present: normal bowel sounds, soft, tenderness (RUQ tenderness), no peritoneal signs. Absent: distended - Extremities Exam Extremities exam: Present: warm, radial pulses palpable and symetrical. Absent : calf tenderness, cyanotic, pedal edema - Neurological Exam Neurological exam: Present: alert, oriented X3, no focal deficits - Psychiatric Psychiatric exam: Present: normal affect, normal mood Internal Medicine: Result - Labs CBC & Chem 7: 08/29/16 05:04 08/29/16 05:04 Labs: Short CBC 08/29/16 Range/Units 05:04 WBC 12.7 H (4.3-11.1) K/mcL Hgb 14.4 (12.9-16.9) g/dL Hct 43.7 (37.5-50.1) % Plt Count 226 (140-400) K/mcL Neutrophils # 8.5 (1.6-8.9) K/mcL BMP 08/29/16 05:04 Sodium 141 Potassium 4.3 Chloride 106 Carbon Dioxide 25 BUN 6 L Creatinine 0.79 Glucose 108 H Calcium 9.0 Cardiac Enzymes 08/28/16 Range/Units 19:27 Troponin I 0.00 (0-0.03) ng/mL Consult Discharge Plan - Plan Referrals: Alex Brown, PAC [Primary Care Provider] -
[2016-08-29] MEDS ORDERED: Lidocaine -MPF 4% 5 ML AMPUL ONE (15:13)
[2016-08-29] MEDS ORDERED: *HR* HYDROmorphone 2 MG/ML SYRINGE ONE (15:14)
[2016-08-29] MEDS ORDERED: *HR* Midazolam HCl 2 MG/2 ML VIAL ONE (15:14)
[2016-08-29] MEDS ORDERED: *HR* Propofol 200 MG/20 ML VIAL IVP ONE (15:14)
[2016-08-29] MEDS ORDERED: *HR* FentaNYL (PF) 100 MCG/2 ML VIAL ONE ×2 (15:14→16:29)
[2016-08-29] MEDS ORDERED: *HR* Rocuronium Bromide 50 MG/5 ML VIAL ONE (15:15)
[2016-08-29] MEDS ORDERED: Lidocaine -MPF 2% 2 ML VIAL ONE (15:15)
[2016-08-29] MEDS ORDERED: *HR* Succinylcholine 200 MG/10 ML VIAL IVP ONE (15:15)
[2016-08-29] MEDS ORDERED: Neostigmine Methylsulfate 3 MG/3 ML SYRINGE ONE (15:15)
[2016-08-29] MEDS ORDERED: Dexamethasone 4 MG/ML VIAL ONE (15:15)
[2016-08-29] MEDS ORDERED: Ondansetron 4 MG/2 ML VIAL ONE (15:15)
[2016-08-29] MEDS ORDERED: Albuterol 2.5 MG/3 ML NEBULIZER IH ONE ×2 (15:19→15:51)
[2016-08-29] MEDS ORDERED: Albuterol 2.5 MG/3 ML NEBULIZER ONE (15:22)
[2016-08-29] MEDS ORDERED: Ondansetron 4 MG/2 ML VIAL IVP ONE (15:51)
[2016-08-29] MEDS ORDERED: Naloxone 0.4 MG/ML INJ IVP PRN (15:51)
[2016-08-29] MEDS ORDERED: *HR* Meperidine 25 MG/ML SYRINGE IVP PRN (15:51)
[2016-08-29] MEDS ORDERED: *HR* HYDROmorphone (PF) 1 MG/ML SYRINGE IVP PRN (15:51)
[2016-08-29] MEDS ORDERED: *HR* Labetalol 100 MG/20 ML MDV IVP PRN (15:51)
--- NOTE | 2016-08-29 16:54 | Anesthesia Evaluation Post Op ---
Date of Encounter: 08/29/16 Time of Encounter: 17:00 - Vital Signs Vital Signs: Vital Signs/O2 Sat/Glucose, Most Current Temp Pulse Resp BP Pulse Ox 08/29/16 16:52 94 15 154/94 92 08/29/16 16:42 78 14 145/87 98 08/29/16 16:32 97.9 F 86 16 158/90 100 - Lungs Lungs: Clear Ascult./Percussion - Airway Airway: Non-obstructed - Cardiovascular Regular Rate - Mental Status Mental Status: Alert & Oriented, Answers Appropriately - Pain Pain Scale: 0 - Nausea Vomiting Nausea Vomiting: Not Present - Hydration Hydration: Tolerates oral liquids - Discharge PostOp Status: Transfer Patient to floor
--- NOTE | 2016-08-29 17:08 | Discharge Summary ---
<Juli Monahan - Last Filed: 08/29/16 17:06> Date of Encounter: 08/29/16 Time of Encounter: 17:06 - Discharge Diagnosis (1) Symptomatic cholelithiasis Priority: Primary Status: Acute Comments: s/p laparoscopic cholecystectomy for gangrenous cholecystitis with cholelithiasis (2) DVT prophylaxis Priority: Secondary Status: Acute - Discharge Medications Prescriptions: OxyCODONE/APAP 10/325 [Percocet 10/325 MG] 1 each PO Q6HR PRN #30 tablet PRN Reason: Pain Docusate [Colace] 100 mg PO BID #30 capsule Home Medications: Docusate [Colace] 100 mg PO BID #30 capsule 08/29/16 [Rx] OxyCODONE/APAP 10/325 [Percocet 10/325 MG] 1 each PO Q6HR PRN #30 tablet [Rx] Allergies/Adverse Reactions: Allergies No Known Allergies Allergy (Verified 08/28/16 05:55) General Surgery Exam Initial Vital Signs Temp Pulse Resp BP Pulse Ox 98.2 F 63 20 168/92 100 08/28/16 05:55 08/28/16 05:55 08/28/16 05:55 08/28/16 05:55 08/28/16 05:55 Date of admission: 08/28/16 12:09 Primary care physician: Alex Brown Discharging clinician: Sergio Montejo (Chris Monahan) Anticipated date of discharge: 08/29/16 - Patient Status Disposition: Home, Self-Care Condition: Good Overall status at discharge: patient is progressing back to baseline - Discharge Instructions Follow Up With: Alex Brown, PAC [Primary Care Provider] - (1 week hospital follow-up) Juli Monahan, EMERY WHEEL WORKER [Advanced Practice Nurse] - 09/11/16 9:15 am (surgery follow-up) Additional Instructions: #1 may shower, no tub bath for 2 weeks #2 wash incisions with soap and water and pat dry daily #3 no lifting, pushing, pulling more than 15 pounds for the next 2 weeks #4 no driving until off narcotics for 24 hours and able to safely react in the car #5 may climb stairs - Diet and Activity Activity: other (See additional instructions above) Diet: advance to your usual diet - Hospital Course Hospital course: Mr. Torre is a 40 year old male presented to the hospital with complaints of epigastric chest pains. His chest pain work-up was negative. He did have cholelithiasis per US of the gallbladder and suggestion of cholecystitis per CT scan. The patient was taken to the operating room with Dr. Montejo for symptomatic cholelithiasis. He did have gangrenous cholecystitis. May discharge to home when meets discharge criteria including: tolerating liquids without nausea/vomiting, pain controlled with oral medication, vital signs are stable and afebrile, voiding and ambulating without dificulty. - Time Spent with Patient Total time spent providing and/or coordinating discharge services: Less than 30 minutes Labs on day of discharge: Labs from last 24 hours 08/29/16 08/29/16 08/28/16 05:04 05:04 19:27 WBC 12.7 H RBC 5.08 Hgb 14.4 Hct 43.7 MCV 86.0 MCH 28.3 MCHC 33.0 RDW 12.6 Plt Count 226 MPV 10.8 Immature Gran % 0.5 Seg Neutrophils % 67.4 Lymphocytes % 23.0 Monocytes % 6.8 Eosinophils % 2.0 Basophils % 0.3 Neutrophils # 8.5 Lymphocytes # 2.9 Monocytes # 0.9 Eosinophils # 0.3 Basophils # 0.0 Sodium 141 Potassium 4.3 Chloride 106 Carbon Dioxide 25 BUN 6 L Creatinine 0.79 Est GFR ( Amer) > 60 Est GFR (Non-Af Amer) > 60 BUN/Creatinine Ratio 8 Glucose 108 H Calculated Osmolality 290 Calcium 9.0 Troponin I 0.00 Triglycerides 69 Cholesterol 150 LDL Cholesterol, Calc 107 H VLDL Cholesterol, Calc 14 HDL Cholesterol 29 L Cholesterol/HDL Ratio 5.2 H - Attending Attestation I examined this patient and my medical decision-making was reviewed with the PINION AND WHEEL TRUER/PA/Advanced Practice Nurse/Resident Physician. I agree with the documented findings, disposition and treatment plan as described except to the extent set forth below. <Sergio Montejo E - Last Filed: 08/29/16 17:33> Date of Encounter: 08/29/16 General Surgery Exam Initial Vital Signs Temp Pulse Resp BP Pulse Ox 98.2 F 63 20 168/92 100 08/28/16 05:55 08/28/16 05:55 08/28/16 05:55 08/28/16 05:55 08/28/16 05:55 Date of admission: 08/28/16 12:09 Primary care physician: Alex Brown - Hospital Course Hospital course: Mr. Torre is a 40 year old male - Time Spent with Patient Total time spent providing and/or coordinating discharge services: Labs on day of discharge: Labs from last 24 hours 08/29/16 08/29/16 08/28/16 05:04 05:04 19:27 WBC 12.7 H RBC 5.08 Hgb 14.4 Hct 43.7 MCV 86.0 MCH 28.3 MCHC 33.0 RDW 12.6 Plt Count 226 MPV 10.8 Immature Gran % 0.5 Seg Neutrophils % 67.4 Lymphocytes % 23.0 Monocytes % 6.8 Eosinophils % 2.0 Basophils % 0.3 Neutrophils # 8.5 Lymphocytes # 2.9 Monocytes # 0.9 Eosinophils # 0.3 Basophils # 0.0 Sodium 141 Potassium 4.3 Chloride 106 Carbon Dioxide 25 BUN 6 L Creatinine 0.79 Est GFR ( Amer) > 60 Est GFR (Non-Af Amer) > 60 BUN/Creatinine Ratio 8 Glucose 108 H Calculated Osmolality 290 Calcium 9.0 Troponin I 0.00 Triglycerides 69 Cholesterol 150 LDL Cholesterol, Calc 107 H VLDL Cholesterol, Calc 14 HDL Cholesterol 29 L Cholesterol/HDL Ratio 5.2 H - Impressions ITS Impressions Cholangiogram,Operative 08/29/16 00:00 IMPRESSION: 1. See above. D/ / Jose Stanley MD / Jose Stanley MD Interpreting Provider: Jose Stanley MD
--- NOTE | 2016-08-29 17:33 | Operative Note ---
Date of procedure: 08/29/16 Pre-op diagnosis: Acute cholecystitis Post-op diagnosis: same Procedure: Laparoscopic cholecystectomy with cholangiogram Anesthesia: DEVAN Surgeon: Sergio Montejo Estimated blood loss (cc): 5 Specimen: Gallbladder Condition: stable Disposition: floor Procedure in Detail: After informed consent this patient was taken the operating room placed supine position. After adequate sedation anesthesia the abdomen was prepped and draped. A proper timeout was performed. Two towel clamps are placed at the umbilicus and a Veres needle was inserted into the abdomen. A 5 mm incision was made at the umbilicus. A 12 mm incision was made in the subxiphoid region. Two 5 mm incisions were made in the right upper quadrant that were 4 finger breadths and 6 finger breadths below the costal margin. The gallbladder was identified, retracted anteriorly and cephalad, and the infundibulum was skeletonized. The cystic duct was easily identified and was dissected free. A ductotomy was created in the cystic duct. A taut catheter was placed within the cystic duct and clipped. A cholangiogram was performed. Contrast filled the cystic duct, common hepatic duct, hepatic radicles, and the distal common bile duct. There was flow of contrast into the duodenum. Once this was confirmed the clippers removed, the taut catheter was removed as well, and the cystic duct was clipped distally. The cystic duct was then transected with scissors. The gallbladder was resected off the liver surface. There was excellent hemostasis. The gallbladder was then retrieved through the 12 mm cannula site. At this point the abdomen was suctioned dry and the pneumoperitoneum was then evacuated. All ports were removed. The 12 mm cannula site was closed with an 0 Vicryl suture in [id number] fashion. The skin was closed with 4-0 Vicryl suture. Dermabond was placed as well. All instrument counts and needle counts are correct in the operation. The patient tolerated the procedure well and was transferred to the PACU in stable condition.
[2016-08-29 19:19] VITALS: BP 166/95
[2016-08-29] MEDS ORDERED: *HR* Heparin 5,000 UNIT/ML VIAL SQ SCH (22:00)
== END 2016-08-29 21:00 | disposition home or self-care (01) ==
LOC: 3NENU 05:52 → EMEROO 05:52 → SUATTDRO 12:09 → 3NENU 12:53
PROVIDERS: ADMIT Internal Medicine; ATTEND Internal Medicine